=== PATIENT | female | born 1950 | race Hispanic/Latino ===

== ENCOUNTER → 2018-08-28 | Outpatient (CLI) | payer MEDICARE ==
--- NOTE | 2018-08-28 14:18 | Diagnostic Imaging Report ---
EXAM: Renal Ultrasound INDICATION: CHRONIC KIDNEY DZ STAGE III COMPARISON: None TECHNIQUE: Transverse and longitudinal images of the kidneys and bladder were obtained. FINDINGS: Right Kidney: Size: 11.3 x 4.7 x 4.5 cm Echogenicity: Normal Parenchymal thickness: Normal Collecting system: No hydronephrosis Stones: None Cyst/Mass: None Left Kidney: Size: 9.8 x 5.1 x 4.9 cm Echogenicity: Normal Parenchymal thickness: Normal Collecting system: No hydronephrosis Stones: None Cyst/Mass: None Bladder: Normal Prevoid volume 27 mL. Postvoid volume of 11 mL. IMPRESSION: Normal renal ultrasound exam. Signed by: Dr. Tj Oliveira M.D. on 08/28/2018 2:15 PM
== END ==
LOC: US 12:23
PROVIDERS: ATTEND Internal Medicine Nephrology
DX: N18.3 Chronic kidney disease, stage 3 (moderate) (principal)
CPT/HCPCS: 76770; 76857

== ENCOUNTER → 2021-09-07 | Outpatient (CLI) | payer MEDICARE | LOC: RAD 14:00 | PROVIDERS: ATTEND Internal Medicine | DX: M25.561 Pain in right knee (principal); M79.671 Pain in right foot ==